=== PATIENT | male | born 1995 | race Caucasian/White ===

== ENCOUNTER 2020-07-06 10:50 | Emergency (ER) | payer MEDICAID ==
[~2020-07-06] VITALS: Ht 162.6 cm; Wt 72.7 kg
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
--- NOTE | 2020-07-06 11:17 | NUR ---
PT STATES, "WHEN I HURT MY HEAD A YEAR AGO, I NEVER SOUGHT TREATMENT
[2020-07-06 12:03] VITALS: BP 105/72
== END 2020-07-06 12:05 | disposition home or self-care (01) ==
LOC: ER 10:51
DX: S06.0X0A Concussion without loss of consciousness, initial encounter (principal); F17.200 Nicotine dependence, unspecified, uncomplicated; Z72.89 Other problems related to lifestyle; Z56.0 Unemployment, unspecified; W01.190A Fall on same level from slipping, tripping and stumbling with subsequent striking against furniture, initial encounter; Z91.81 History of falling; Y93.01 Activity, walking, marching and hiking; Y92.89 Other specified places as the place of occurrence of the external cause; Y99.8 Other external cause status
CPT/HCPCS: 93005; 99284

== ENCOUNTER 2021-06-14 09:01 | Emergency (ER) | payer MEDICAID ==
[~2021-06-14] VITALS: Ht 162.6 cm; Wt 75.0 kg
[2021-06-14 09:06] VITALS: BP 113/75
[2021-06-14] MEDS ORDERED: TETanus/Pertussis (Acell)/Diphther VAC/PF (Tdap-Adult) 0.5ml syringe IMVAC ONE (10:20)
== END 2021-06-14 10:35 | disposition home or self-care (01) ==
LOC: ER 09:02
DX: S61.012A Laceration without foreign body of left thumb without damage to nail, initial encounter (principal); Z72.89 Other problems related to lifestyle; Z56.0 Unemployment, unspecified; W26.0XXA Contact with knife, initial encounter; Y93.89 Activity, other specified; Y92.89 Other specified places as the place of occurrence of the external cause; Y99.8 Other external cause status
CPT/HCPCS: 12001; 90471; 90715; 99283